=== PATIENT | female | born 1965 ===

== ENCOUNTER 2024-04-17 05:34 | Inpatient (IN) | payer OTHER ==
[2024-04-08 13:01] VITALS: BP 158/80
[~2024-04-17] VITALS: Ht 160 cm; Wt 83.9 kg
[~2024-04-17 05:34] MED LIST: ZESTRIL10 M1
[2024-04-17] MEDS ORDERED: Calcium Carbonate 1 TAB TABLET PO SCH (09:42)
[2024-04-17] MEDS ORDERED: ACETAMINOPHEN 500 MG GEL..CAP PO SCH (09:43)
[2024-04-17] MEDS ORDERED: LISINOPRIL 10 MG TABLET PO SCH (09:43)
[2024-04-17] MEDS ORDERED: TRAMADOL HCL 50 MG TABLET PO SCH (09:43)
[2024-04-17] MEDS ORDERED: CYCLOBENZAPRINE HCL 5 MG TABLET PO SCH (09:44)
[2024-04-17] MEDS ORDERED: ONDANSETRON HCL 2 MG/ML VIAL IV PRN (09:45)
[2024-04-17] MEDS ORDERED: ENALAPRILAT DIHYDRATE 1.25 MG/ML VIAL IV PRN (09:45)
[2024-04-17] MEDS ORDERED: MORPHINE SULFATE 4 MG/ML VIAL IV ONE (11:25)
[2024-04-17 16:00] VITALS: BP 151/68; O2SAT 97
[2024-04-17] MEDS ORDERED: PANTOPRAZOLE SODIUM 40 MG/VIAL VIAL IV PUSH SCH (21:00)
[2024-04-17] MEDS ORDERED: CALCITRIOL 0.5 MCG CAPSULE PO SCH (21:49)
[2024-04-18 01:57] VITALS: BP 101/62; O2SAT 92
[2024-04-18] MEDS ORDERED: LEVOTHYROXINE SODIUM 137 MCG TABLET PO SCH (06:00)
[2024-04-18] MEDS ORDERED: CALCITRIOL 0.5 MCG CAPSULE PO NR (09:10)
[2024-04-18] MEDS ORDERED: Calcium Carbonate 1 TAB TABLET PO NR (09:10)
== END 2024-04-18 11:57 | disposition home or self-care (01) | DRG 627 ==
LOC: CIR.AMB 05:34 → O/R 10:46 → CIR.AMB 11:45 → SURH 14:06
PROVIDERS: ADMIT Surgery; ATTEND Surgery
PROC: 07T10ZZ Resection of Right Neck Lymphatic, Open Approach (ICD-10-PCS; 2024-04-17)
PROC: 0GTH0ZZ Resection of Right Thyroid Gland Lobe, Open Approach (ICD-10-PCS; principal; 2024-04-17 07:00)
DX: C73 Malignant neoplasm of thyroid gland (principal); E05.00 Thyrotoxicosis with diffuse goiter without thyrotoxic crisis or storm; E04.1 Nontoxic single thyroid nodule